=== PATIENT | female | born 1945 | race Caucasian/White ===

== ENCOUNTER 2017-08-18 09:32 | Inpatient (IN) | payer OTHER ==
[~2017-08-18] VITALS: Ht 157.5 cm; Wt 75.4 kg
--- NOTE | 2017-08-18 10:04 | ED AMS/SEIZURE/WEAK/DIZZY ---
History of Present Illness General Chief Complaint: Dizziness Stated Complaint: DIZZINESS Source: patient, family Exam Limitations: no limitations Vital Signs & Intake/Output Vital Signs & Intake/Output Vital Signs Date Time Temp Pulse Resp B/P B/P Pulse O2 O2 Flow FiO2 Mean Ox Delivery Rate 08/18 2129 60 116/50 08/18 1929 98.9 89 18 130/62 95 Room Air 08/18 1733 98.6 68 18 134/64 98 Room Air Room Air 08/18 1619 98.4 67 18 129/62 97 Room Air 08/18 1254 97.9 66 16 135/62 99 Room Air 08/18 1026 69 16 157/68 99 Room Air 08/18 0938 97.8 72 18 147/67 99 Room Air ED Intake and Output 08/19 0000 08/18 1200 Intake Total 150 0 Output Total Balance 150 0 Intake, Oral 150 0 Number 0 Bowel Movements Patient 168 lb 165 lb Weight Weight Reported by Patient Measurement Method Allergies Coded Allergies: Iodine and Iodide Containing Produc (Intermediate, RASH 08/18/17) Uncoded Allergies: NYSENTAL (Intermediate, RASH 08/18/17) INGREDIENT: NO KNOWN - NO KNOWN DRUG ALLERGY (02/28/09) Reconcile Medications Aspirin (Ecotrin*) 81 MG TABLET.DR 1 TAB PO DAILY HEART HEALTH (Reported) Cholecalciferol (Vitamin D3) (Vitamin D) 1,000 UNIT TABLET 1 TAB PO DAILY VITAMIN SUPPORT (Reported) Hydroxyurea 500 MG CAPSULE 2 CAP PO Q48 UNKNOWN (Reported) Hydroxyurea 500 MG CAPSULE 1 CAP PO Q48 UNKNOWN (Reported) Vitamin E 400 UNIT CAPSULE 1 CAP PO DAILY VITAMIN SUPPORT (Reported) Triage Note: BIBA FROM HOME WITH C/O SEVERE DIZZINESS SINCE LAST PM, UNABLE TO SIT UP OR MOVE. ALERT, DENIES PAIN OR SOB. ALSO C/O NAUSEA. REPORTS DIZZINESS STARTED DIRONG THE NIGHT AFTER GETTING UP TO GO TO THE BATHROOM, FELL AGAINST WALL. DENIES HITTING HEAD. PLACED ON PEDODONTIST. Triage Nurses Notes Reviewed? yes Onset: Abrupt Duration: hour(s): Timing: multiple episodes today Injury Environment: home Severity: moderate HPI: 71-year-old female BIBA to emergency department complaining of dizziness beginning in the middle of the night when she walked to the bathroom. Patient states dizziness is worse with positional changes including turning her head to both sides, sitting or standing. Patient states dizziness feels as though the room is spinning. She has never had similar symptoms in the past. Patient reports nausea associated with her dizziness. She denies fall or head trauma, visual changes, abdominal pain, chest pain, dyspnea, vomiting. (Marimar Morrell) Past History Travel History Traveled to [place] past 21 day No Medical History Any Pertinent Medical History? see below for history Neurological: NONE EENT: NONE Cardiovascular: HEART MURMER Respiratory: NONE Gastrointestinal: NONE Hepatic: NONE Renal: NONE Musculoskeletal: ARTHRITIS Psychiatric: NONE Endocrine: GOITER Surgical History Surgical History: non-contributory Psychosocial History What is your primary language Syrian Tobacco Use: Never used ETOH Use: denies use Family History Hx Contributory? No (Marimar Morrell) Review of Systems Review of Systems Constitutional: Reports: no symptoms. EENTM: Reports: no symptoms. Respiratory: Reports: no symptoms. Cardiovascular: Reports: no symptoms. GI: Reports: see HPI. Genitourinary: Reports: no symptoms. Musculoskeletal: Reports: no symptoms. Skin: Reports: no symptoms. Neurological/Psychological: Reports: see HPI. Hematologic/Endocrine: Reports: no symptoms. Immunologic/Allergic: Reports: no symptoms. All Other Systems: Reviewed and Negative (Marimar Morrell) Physical Exam Physical Exam General Appearance: well developed/nourished, no apparent distress, alert, awake Head: atraumatic, normal appearance Eyes: Bilateral: normal appearance, PERRL, EOMI. Ears, Nose, Throat: normal pharynx, normal ENT inspection, hearing grossly normal Neck: normal inspection, supple, full range of motion Respiratory: normal breath sounds, no respiratory distress, lungs clear Cardiovascular: regular rate/rhythm Gastrointestinal: normal bowel sounds, soft, non-tender, no organomegaly Back: normal inspection, normal range of motion Extremities: normal range of motion Neurologic/Psych: no motor/sensory deficits, awake, alert, oriented x 3, stave block roller II- XII nml as tested Skin: intact, normal color, warm/dry Core Measures ACS in differential dx? Yes CVA/TIA Diagnosis No Sepsis Present: No Sepsis Focused Exam Completed? No (Marimar Morrell) Progress Differential Diagnosis: arrythmia, alcohol intoxication, anemia, benign positional vertigo, CVA/stroke, dehydration, encephalitis, hypoglycemia, intracranial Hem., intracranial mass/tumor, labrynthitis, postural hypotension, post-traumatic vertigo, vertebrobasilar insuff Plan of Care: Orders Procedure Date/time Status Heart Healthy Diet 08/19 B Active TROPONIN LEVEL 08/19 0600 Active CBC WITHOUT DIFFERENTIAL 08/19 0600 Active BASIC ELECTROLYTES PLUS BUN&CR 08/19 0600 Active EKG 08/19 0600 Active TROPONIN LEVEL 08/19 0000 Complete EKG 08/19 0000 Active Regular Diet 08/18 D Complete TROPONIN LEVEL 08/18 1834 Complete EKG 08/18 1834 Active Patient Data 08/18 1827 Active PT Evaluate & Treat 08/18 1744 Active Pathway - chart 08/18 1744 Active House Staff 08/18 1744 Active Patient Data 08/18 1744 Active Vital Signs 08/18 1729 Active Teach/Educate 08/18 1729 Active Pain Treatment and Response 08/18 1729 Active Nutritional Intake, Monitor 08/18 1729 Active Isolation 08/18 1729 Active Intake & Output 08/18 1729 Active Patient Care Conference 08/18 1729 Active Activity/Ambulation 08/18 1729 Active Patient Data 08/18 1549 Active OXYGEN SETUP (GEN) 08/18 1542 Active Saline Lock 08/[address] in observation 08/18 1542 Active Vital Signs 08/18 1542 Complete Activity/Ambulation 08/18 1542 Complete Code Status 08/18 1542 Active PT Evaluate & Treat 08/18 1242 Active THYROID STIMULATING HORMONE 08/18 1035 Complete MAGNESIUM 08/18 1035 Complete FOLIC ACID 08/18 1035 Complete VITAMIN B12 08/18 1035 Complete TROPONIN LEVEL 08/18 1003 Complete COMPREHENSIVE METABOLIC PANEL 08/18 1003 Complete CBC WITHOUT DIFFERENTIAL 08/18 1003 Complete Intake & Output 08/18 0947 Complete EKG 08/18 0935 Active Neuromuscular Re-Ed 15Min Ea 08/18 UNK Complete PT EVAL MOD COMPLEX 30 MIN 08/18 UNK Complete BODY POSITION GOAL STATUS 08/18 UNK Complete BODY POSITION CURRENT STATUS 08/18 UNK Complete Lab Add-on Test 08/18 UNK Active VTE Mechanical Prophylaxis 08/18 UNK Active Vital Signs 08/18 UNK Active MISTAKE 08/18 UNK Active Telemetry/Lineman 08/18 UNK Active Intake & Output 08/18 UNK Active CMS- Neurovascular Checks 08/18 UNK Active MRI-HEAD W/O PAUL 08/18 UNK Active Current Medications Sig/Ragini Start time Last Medication Dose Stop Time Status Admin Hydroxyurea 1,000 MG Q48 08/20 0900 AC (Hydrea) Hydroxyurea 500 MG Q48 08/19 1330 AC (Hydrea) Meclizine HCl 12.5 MG TID 08/19 0900 AC (Antivert) Acetaminophen 650 MG Q6P PRN 08/18 1745 AC (Tylenol) Morphine Sulfate 4 MG Q4P PRN 08/18 1745 AC (MORPHINE SULFATE) Oxycodone/ 1 TAB Q6P PRN 08/18 1745 AC Acetaminophen (Percocet) Laboratory Tests 08/19/17 0630: Sodium Pending, Potassium Pending, Chloride Pending, Carbon Dioxide Pending, Anion Gap Pending, BUN Pending, Creatinine Pending, BUN/Creatinine Ratio Pending , Troponin I Pending, CBC w Diff Pending, WBC Pending, RBC Pending, Hgb Pending, Hct Pending, MCV Pending, MCH Pending, MCHC Pending, RDW Pending, Plt Count Pending, MPV Pending 08/19/17 0020: Troponin I < 0.01 08/18/17 1856: Troponin I < 0.01 08/18/17 1035: Anion Gap 10, Estimated GFR > 60, BUN/Creatinine Ratio 18.6, Glucose 108 H, Calcium 9.6, Magnesium 1.9, Total Bilirubin 0.3, AST 17, ALT 25, Alkaline Phosphatase 65, Troponin I < 0.01, Total Protein 7.1, Albumin 3.8, Globulin 3.3, Albumin/Globulin Ratio 1.2, Vitamin B12 571, Folate > 20.0 H, TSH 1.100, CBC w Diff NO MAN DIFF REQ, RBC 3.75 L, MCV 101.6 H, MCH 34.6 H, MCHC 34.1, RDW 13.2, MPV 7.3 L, Gran % 69.0, Lymphocytes % 21.7, Monocytes % 6.5, Eosinophils % 2.3, Basophils % 0.5, Absolute Granulocytes 3.9, Absolute Lymphocytes 1.2, Absolute Monocytes 0.4, Absolute Eosinophils 0.1, Absolute Basophils 0 Patient medicated with meclizine. Given no history of vertigo or dizziness CT imaging of the head was obtained to rule out mass, ICH. Head CT scan is within normal limits, no acute findings. Patient's labs are stable. Patient reports persistent dizziness following meclizine. She was medicated with scopolamine patch. Following scopolamine patch attempted having patient. However she could not tolerate sitting in stretcher due to her dizziness, she had to lay flat again. Patient medicated with IV ativan. PT consult ordered for geovanna hallpike maneuver. Following PT evaluation attempts made to ambulate the patient however upon standing she doesn't dizziness, she could not walk. Given persistent vertigo symptoms following several medications is unsafe to discharge this patient at this time. Case management recommend observation. Patient requires further antiemetics, medications for her dizziness, possible neurology consult, had MRI. Spoke with Dr. White regarding general medicine obervation. Dr. Cotton agrees with this plan. Diagnostic Imaging: Viewed by Me: CT Scan. Discussed w/RAD: CT Scan. Radiology Impression: PATIENT: LUZ ELENA MCCRARY PRESENT AGE: 71 PATIENT ACCOUNT NO: [id number] : 45 LOCATION: [facility] ORDERING PHYSICIAN: Marimar CHOWDHURY SERVICE DATE: 08/18/17 EXAM TYPE: CAT - CT HEAD WO IV CONTRAST EXAMINATION: CT HEAD WITHOUT CONTRAST CLINICAL INFORMATION: Evaluate for intracranial hemorrhage. COMPARISON: None TECHNIQUE: Contiguous axial imaging was performed from the skull base to vertex without intravenous administration of contrast. DLP: 620.92 mGy-cm FINDINGS: There is no evidence of acute intracranial hemorrhage or territorial infarction. No abnormal mass effect or midline shift is seen. Newman to white matter differentiation is well preserved. No extra-axial fluid collections are identified. The ventricles are normal in size. There is no abnormal attenuation within the brain parenchyma. The osseous structures and soft tissues are normal. The mastoid air cells and visualized portions of the paranasal sinuses are well aerated. IMPRESSION: No acute intracranial pathology. DICTATED BY: Zee Adams MD DATE/TIME DICTATED:08/18/171126 PRODUCTION FOREMAN:CLIFF DATE/TIME TRANSCRIBED:08/18/171126 CONFIDENTIAL, DO NOT COPY WITHOUT APPROPRIATE AUTHORIZATION. <Electronically signed in Other Vendor System> SIGNED BY: Zee Adams MD 08/18/17 1132 Initial ED EKG: sinus rhythm @71bpm, PAC, nonspecific ST changes (Ilana CHOWDHURY,Marimar Noguera) Departure Departure Disposition: STILL A PATIENT Condition: Stable Clinical Impression Primary Impression: Vertigo, constant Secondary Impressions: Gait instability Referrals: William RICHTER,Racheal Goodman (PCP/Family) Departure Forms: Customer Survey General Discharge Information Observation Note Spoke With: Junior White MD Physician Advisor Notified: SANDEEP YANES DO Place Patient In: Non-ED OBS Care Area Rationale for Observation: My rational for observation is as follows [intractable vertigo despite multiple medications and PT consults, patient is unable to ambulate here in the emergency department due to her vertigo, she requires further antiemetics, case management and PT consult, premature discharge is medically unsafe]. (Ilana CHOWDHURY,Marimar Noguera) PA/SHEET METAL ROOFER Co-Sign Statement Statement: ED Attending supervision documentation- X I saw and evaluated the patient. I have also reviewed all the pertinent lab results and diagnostic results. I agree with the findings and the plan of care as documented in the PA's/SHEET METAL ROOFER's documentation. Initractable dizziness/vertigo unable to sit up or ambulate despite multiple interventions. No improvement with Alex. [] I have reviewed the ED Record and agree with the PA's/SHEET METAL ROOFER's documentation. [] Additions or exceptions (if any) to the PAs/SHEET METAL ROOFER's note and plan are summarized below: [] (Yury RICHTER,Serjio)
[2017-08-18 10:47] LABS: ABSOLUTE BASOPHIL COUNT 0 /CUMM (0.0-0.2); ABSOLUTE EOSINOPHIL COUNT 0.1 /CUMM (0.0-0.7); ABSOLUTE GRANULOCYTE CT 3.9 /CUMM (1.4-6.5); ABSOLUTE LYMPH COUNT 1.2 /CUMM (1.2-3.4); ABSOLUTE MONOCYTE COUNT 0.4 /CUMM (0.10-0.60); BASOPHIL % 0.5 % (0.0-2.0); EOSINOPHIL % 2.3 % (0-5); HEMATOCRIT 38.1 % (37-47); MEAN CORPUSCULAR HGB 34.6 PG (27.0-31.0); MEAN CORPUSCULAR HGB CONC 34.1 G/DL (33.0-37.0); MEAN CORPUSCULAR VOLUME 101.6 FL (81.0-99.0); MEAN PLATELET VOLUME 7.3 FL (7.4-10.4); PLATELET COUNT 371 /CUMM (130-400); RBC DISTRIBUTION WIDTH 13.2 % (11.5-14.5); RED BLOOD CELL CT 3.75 /CUMM (4.20-5.40); WHITE BLOOD CELL COUNT 5.6 /CUMM (4.8-10.8)
--- NOTE | 2017-08-18 11:32 | CT SCAN REPORT ---
EXAMINATION: CT HEAD WITHOUT CONTRAST CLINICAL INFORMATION: Evaluate for intracranial hemorrhage. COMPARISON: None TECHNIQUE: Contiguous axial imaging was performed from the skull base to vertex without intravenous administration of contrast. DLP: 620.92 mGy-cm FINDINGS: There is no evidence of acute intracranial hemorrhage or territorial infarction. No abnormal mass effect or midline shift is seen. Newman to white matter differentiation is well preserved. No extra-axial fluid collections are identified. The ventricles are normal in size. There is no abnormal attenuation within the brain parenchyma. The osseous structures and soft tissues are normal. The mastoid air cells and visualized portions of the paranasal sinuses are well aerated. IMPRESSION: No acute intracranial pathology.
[2017-08-18] MEDS ORDERED: HYDROXYUREA500 M1 PO (12:42)
[2017-08-18] MEDS ORDERED: VITAMIN D1000 UNIT PO (12:43)
[2017-08-18] MEDS ORDERED: VITAMIN E400 UNI5 PO (12:44)
[2017-08-18] MEDS ORDERED: ASPIRIN EC81 M1 PO (12:44)
--- NOTE | 2017-08-18 17:39 | History & Physical ---
Eva Doshi 08/18/17 2437: General Information and HPI History of Present Illness: Ms. Hopkins is a 71 yo F with a PMH of multinodular goiter, OA, thrombocytosis on Hydroxyurea who presents to the ED with dizziness for 2 days. Patient reports last night while getting up from bed to use the bathroom she felt lightheaded and fell backwards onto the bed. She then got up and went to the bathroom to urinate. She made her way back to bed and her dizziness resolved upon lying down in bed. Eventually she had to use the bathroom again and needed assistance from her to ambulate. She reports previous episode of dizziness but not this severe. She has intermittent palpitations that resolved when laying in bed or coughing. She does a lot of yard work and recalls multiple tick removals from her body but never sought medical attention. She notices that her hands contracts spontaneously and requires her to straigthen her fingers with her other hand. She has chronic neck numbness and RLE weakness for the past few weeks. She reports a normal appetite. She performs her own ADLs. She denies CAMPBELL, blurry vision, tinnitus, fever, chills, urinary or bowel symptoms. In the ED she was given meclizine 1 dose, lorazepam 1 dose, scopolamine patch but she still reports dizziness upon sitting up Allergies/Medications Allergies: Coded Allergies: Iodine and Iodide Containing Produc (Intermediate, RASH 08/18/17) Uncoded Allergies: NYSENTAL (Intermediate, RASH 08/18/17) INGREDIENT: NO KNOWN - NO KNOWN DRUG ALLERGY (02/28/09) Past History Travel History Traveled to [place] past 21 day No Medical History Neurological: NONE EENT: NONE Cardiovascular: HEART MURMER Respiratory: NONE Gastrointestinal: NONE Hepatic: NONE Renal: NONE Musculoskeletal: ARTHRITIS Psychiatric: NONE Endocrine: GOITER Isolation History: Standard Surgical History Surgical History: non-contributory Past Family/Social History Psychosocial History ETOH Use: denies use Review of Systems Review of Systems Constitutional: Reports: see HPI. Exam & Diagnostic Data Last 24 Hrs of Vital Signs/I&O Vital Signs Date Time Temp Pulse Resp B/P B/P Pulse O2 O2 Flow FiO2 Mean Ox Delivery Rate 08/18 1733 98.6 68 18 134/64 98 Room Air Room Air 08/18 1619 98.4 67 18 129/62 97 Room Air 08/18 1254 97.9 66 16 135/62 99 Room Air 08/18 1026 69 16 157/68 99 Room Air 08/18 0938 97.8 72 18 147/67 99 Room Air Intake & Output 08/18 1600 08/18 0800 06 0000 Intake Total 0 Output Total Balance 0 Intake, Oral 0 Patient 165 lb Weight Weight Reported by Patient Measurement Method Physical Exam General Appearance Alert, Oriented X3, Cooperative, No Acute Distress Skin BL upper extremity rash HEENT Atraumatic, PERRLA, EOMI, Nystagmus Neck Supple, No JVD, No thryomegaly Cardiovascular Regular Rate, Normal S1, Normal S2 Lungs Clear to Auscultation, Normal Air Movement Abdomen Normal Bowel Sounds, Soft, No Tenderness Neurological Normal Speech, Strength at 5/5 X4 Ext, Normal Tone, Sensation Intact, Cranial Nerves 3-12 NL Extremities No Edema Last 24 Hrs of Labs/Kyaw: Laboratory Tests 08/18/17 1035: Anion Gap 10, Estimated GFR > 60, BUN/Creatinine Ratio 18.6, Glucose 108 H, Calcium 9.6, Total Bilirubin 0.3, AST 17, ALT 25, Alkaline Phosphatase 65, Troponin I < 0.01, Total Protein 7.1, Albumin 3.8, Globulin 3.3, Albumin/ Globulin Ratio 1.2, CBC w Diff NO MAN DIFF REQ, RBC 3.75 L, MCV 101.6 H, MCH 34.6 H, MCHC 34.1, RDW 13.2, MPV 7.3 L, Gran % 69.0, Lymphocytes % 21.7, Monocytes % 6.5, Eosinophils % 2.3, Basophils % 0.5, Absolute Granulocytes 3.9, Absolute Lymphocytes 1.2, Absolute Monocytes 0.4, Absolute Eosinophils 0.1, Absolute Basophils 0 Diagnostic Data EKG Results irregular rate, HR 71, SR, QTc [address] HEAD WITHOUT CONTRAST IMPRESSION: No acute intracranial pathology. Assessment/Plan Assessment: Ms. Hopkins is a 71 yo F with a PMH of multinodular goiter, OA, thrombocytosis presents to the ED with dizziness for 2 days. #Vertigo #Abnormal ECG #Macrocytosis Plan: Place on 23h OBS on telemetry for close monitiring TROP/ECG q6h x 3 PT evaluation MRI brain to r/o posterior vertebrobasilar insufficiency Tick panel (Lyme, Ehrlicia, Babesios) Obtain Mag, TSH, B12, folate We will resume her home meds: Hydroxyurea We will hold ASA Meclizine for dizziness Diet: Regular DVT ppx: ALPS Code: Full As Ranked By This Provider Problem List: 1. Vertigo Core Measures/Misc (11/24) Acute Coronary Syndrome ACS Diagnosis: No Congestive Heart Failure Congestive Heart Failure Diagnosis No Cerebrovascular Accident CVA/TIA Diagnosis: No VTE (View Protocol) VTE Risk Factors Age>40 No Mechanical VTE Prophylaxis d/t N/A MechProphylax Ordered No VTE Pharm Prophylaxis d/t Medical Contraindication (CVA needs to be ruled out ) Sepsis (View protocol) Sepsis Present: No If YES complete Sepsis Event Note If YES complete Sepsis Event Note Junior White 08/18/171952: General Information and HPI Allergies/Medications Home Med list Aspirin (Ecotrin*) 81 MG TABLET.DR 1 TAB PO DAILY HEART HEALTH (Reported) Cholecalciferol (Vitamin D3) (Vitamin D) 1,000 UNIT TABLET 1 TAB PO DAILY VITAMIN SUPPORT (Reported) Hydroxyurea 500 MG CAPSULE 2 CAP PO Q48 UNKNOWN (Reported) Hydroxyurea 500 MG CAPSULE 1 CAP PO Q48 UNKNOWN (Reported) Meclizine HCl 25 MG TABLET 1 TAB PO TIDPRN Vertigo Vitamin E 400 UNIT CAPSULE 1 CAP PO DAILY VITAMIN SUPPORT (Reported) Core Measures/Misc (11/24) Sepsis (View protocol) If YES complete Sepsis Event Note If YES complete Sepsis Event Note Attending MD Review Statement Attending Statement Attending MD Statement: examined this patient, discuss w/resident/PA/PHILOSOPHY SPECIALIST, agreed w/resident/PA/PHILOSOPHY SPECIALIST, reviewed EMR data (avail) Attending Assessment/Plan: 71 yr female with essential thrombocytosis on hydroxyurea, multinodular goiter presented with c/c of dizziness which started last night . Pt woke to go the bathroom and started feeling wobbly and had this feeling of room spinning around and was assoicated with nausea. No vomiting , no fever or chills. Pt does give h /o previously feeling dizzy on getting up suddenly but denies any vertigo. Denies any sick contacts. Pt gives h/o working in the backyard and seeing ticks on her body. Pt was given meclizine, scopolamine and ativan in the ER but cont to feel dizzy and with inability to walk . On exam has mild nystagmus. Will observe on telemetry. EKG showed some sinus arrhythmia. Will get Trop and repeat EKG. Will get MRI of brain. Will order tick panel and will get PT consult. will start her on meclizine and will give valium if not getting better with meclizine. d/w pt the care Queta Ruiz MD 08/18/172021: Core Measures/Misc (11/24) Sepsis (View protocol) If YES complete Sepsis Event Note If YES complete Sepsis Event Note Resident Review Statement Resident Statement: examined this patient, discussed with analysis intern, agreed with analysis intern Other Findings: This is a 71-year-old female with past medical history significant for essential thrombocytosis on hydroxyurea, arthritis, multinodular goiter, some kind of breast nodule, murmur, who comes in for chief complaint of dizziness. Yesterday she went to sleep at night and noted no abnormalities. However, when she woke up to use the restroom around 11:30 PM she noted severe dizziness and felt unsteady on her feet when walking to the bathroom. She fell against a wall, denies any loss of consciousness, syncope, or head strike. Pt endorses nausea but no vomiting, only thing that improved her symptoms was laying in bed and looking straight. She does have some intermittent l. sided neck numbness and r. leg weakness earlier in the week. She does have palpitations for several months when getting into bed but it gets better with moves such as coughing. She endorse hx of multiple tick bites. Vitals: 97.8, 66-72, 16-18, blood pressure 129/62-157/68, 97-99% LABS: WBC 5.6, MCV 101.6 Assessment: This is a 71-year-old female with past medical history significant for thrombocytosis, multinodular goiter, arthritis,who comes in for CC of sudden onset dizziness. On physical exam she was found to have 5 beat nystagmus with no other obvious neurologic deficit but with some postural instability. Differential diagnosis for vertigo in this patient, given sudden onset, includes BPPV, vestibular neuritis, and vertebrobasilar TIA. Problem List: 1. Vertigo 2. Palpitations 3. EKG with PAC and conduction alejandra PLAN: 1. Vertigo: It is difficult to differentiate peripheral versus central vertigo given that she has unidirectional 5 beat nystagmus without any other obvious neurologic deficit other than subjective reporting of intermittent right leg weakness and left-sided neck numbness but she does have postural instability w/o deafness. CT head negative for intracranial pathology. * MRI of head * Physical therapy * Continue meclizine * Note holding ASA at this time. 2. Palpitations: EKG shows sinus arrhythmia and multiple PACs. She does seem to have evidence of possible block. * Troponin EKG * Check magnesium * Tick panel * TSH 3. MCV 101.6. Secondary to hydroxyurea. However will rule out other causes * Check B12 * Check folate 4. Hx of Thrombocytosis: * Con't hydroxyurea FC Mech ppx REG DIET
[2017-08-18 21:29] VITALS: BP 116/50
[2017-08-19 07:14] VITALS: BP 120/62
--- NOTE | 2017-08-19 07:25 | PN- Housestaff ---
See Addendum Subjective Follow-up For: Vertigo Tele-Events Since Last Visit: Normal sinus rhythm with sinus bradycardia in the 50s Subjective: Seen and examined. Currently resting in the bed. Work with PT earlier was unable to work with them because of dizziness. Believes that with the slightest movement she starts experiencing dizziness sensation of room spinning. Complaining of left neck numbness pins and needle sensation however not present at the moment Review of Systems Constitutional: Reports: see HPI. Objective Last 24 Hrs of Vital Signs/I&O Vital Signs Date Time Temp Pulse Resp B/P B/P Pulse O2 O2 Flow FiO2 Mean Ox Delivery Rate 08/19 0714 98.2 59 20 120/62 95 Room Air 08/18 2129 60 116/50 08/18 1929 98.9 89 18 130/62 95 Room Air 08/18 1733 98.6 68 18 134/64 98 Room Air Room Air 08/18 1619 98.4 67 18 129/62 97 Room Air 08/18 1254 97.9 66 16 135/62 99 Room Air Intake & Output 08/19 1600 08/19 0800 08/19 0000 Intake Total 100 150 Output Total Balance 100 150 Intake, Oral 100 150 Number 0 Bowel Movements Patient 168 lb Weight Physical Exam General Appearance: Alert, Oriented X3 Cardiovascular: Normal S1, Normal S2 Lungs: Clear to Auscultation Abdomen: Normal Bowel Sounds, Soft Neurological: Normal Speech, Strength at 5/5 X4 Ext, Normal Tone, Sensation Intact, Cranial Nerves 3-12 NL Extremities: No Edema Current Medications: Current Medications Sig/Ragini Start time Last Medication Dose Route Stop Time Status Admin Acetaminophen 650 MG Q6P PRN 08/18 1745 AC PO Hydroxyurea 500 MG Q48 08/20 0900 DC PO Hydroxyurea 1,000 MG Q48 08/20 0900 AC PO Hydroxyurea 500 MG Q48 08/19 1330 AC PO Hydroxyurea 1,000 MG Q48 08/19 0900 DC PO Hydroxyurea 1,000 MG Q48 08/19 0000 DC 08/19 PO 08/19 0001 0034 Lorazepam 0 .STK-MED ONE 08/18 1251 DC .ROUTE Lorazepam 1 MG ONCE ONE 08/18 1245 DC 08/18 IV 08/18 1246 1252 Meclizine HCl 12.5 MG TID 08/19 09 AC 06/12 PO 0853 Morphine Sulfate 4 MG Q4P PRN 08/18 1745 AC IV Oxycodone/ 1 TAB Q6P PRN 08/18 1745 AC Acetaminophen PO Scopolamine HBr 0 .STK-MED ONE 08/18 1211 DC TOP Scopolamine HBr 1 PAT ONE ONE 08/18 1200 DC 08/18 TOP 08/18 1201 1206 Last 24 Hrs of Lab/Kyaw Results Last 24 Hrs of Labs/Mics: Laboratory Tests 08/19/17 0630: Anion Gap 8, Estimated GFR > 60, BUN/Creatinine Ratio 24.3, Troponin I < 0.01, CBC w Diff NO MAN DIFF REQ, RBC 3.55 L, MCV 101.6 H, MCH 34.3 H, MCHC 33.8, RDW 13.9, MPV 7.8, Gran % 52.1, Lymphocytes % 34.3, Monocytes % 7.9, Eosinophils % 5.0, Basophils % 0.7, Absolute Granulocytes 3.2, Absolute Lymphocytes 2.1, Absolute Monocytes 0.5, Absolute Eosinophils 0.3, Absolute Basophils 0 08/19/17 0600: Lyme Disease Antibody Pending 08/19/17 0020: Troponin I < 0.01 08/18/17 1856: Troponin I < 0.01 Assessment/Plan Assessment: This is a 71-year-old female with past medical history significant for thrombocytosis, multinodular goiter, arthritis,who comes in for CC of sudden onset dizziness. On physical exam she was found to have 5 beat nystagmus with no other obvious neurologic deficit but with some postural instability. Differential diagnosis for vertigo in this patient, given sudden onset, includes BPPV, vestibular neuritis, and vertebrobasilar TIA. She is currently being monitored on telemetry floor for treatment and evaluation of following conditions #Vertigo It is difficult to differentiate peripheral versus central vertigo given that she has unidirectional 5 beat nystagmus without any other obvious neurologic deficit other than subjective reporting of intermittent right leg weakness and left-sided neck numbness but she does have postural instability w/o deafness. CT head negative for intracranial pathology. -MRI head -Neuro consult placed -We are going to discontinue meclizine at this point because it is not helping the patient. -We will consider addition of Valium after neurology consult -PT work with the patient and Jennifer-Hallpike maneuver was positive for reproduction of the symptoms. However patient reported left-sided posterior cervical numbness without any visual changes. She reported dizziness and disorientation along with ataxia as per PT notes # Palpitations EKG shows sinus arrhythmia and multiple PACs. She seem to have evidence of possible block on admission. 3 sets of troponin negative, magnesium and TSH within normal limits. Overnight telemetry monitoring revealed normal sinus rhythm with sinus bradycardia -Thick panel pending #History of thrombocytosis Continue hydroxyurea #MCV 101.6. Secondary to hydroxyurea. B12 and folate within normal limits #/[facility] ppx/REG DIET Problem List: 1. Vertigo 2. Gait instability Pain Ratin Pain Location: na Pain Goal: Pain 4 or less Pain Plan: prn Tomorrow's Labs & Rationales: none
[2017-08-19 07:43] LABS: ABSOLUTE BASOPHIL COUNT 0 /CUMM (0.0-0.2); ABSOLUTE EOSINOPHIL COUNT 0.3 /CUMM (0.0-0.7); ABSOLUTE GRANULOCYTE CT 3.2 /CUMM (1.4-6.5); ABSOLUTE LYMPH COUNT 2.1 /CUMM (1.2-3.4); ABSOLUTE MONOCYTE COUNT 0.5 /CUMM (0.10-0.60); BASOPHIL % 0.7 % (0.0-2.0); GRANULOCYTE % 52.1 % (42.2-75.2); MEAN CORPUSCULAR HGB 34.3 PG (27.0-31.0); MEAN CORPUSCULAR HGB CONC 33.8 G/DL (33.0-37.0); MEAN CORPUSCULAR VOLUME 101.6 FL (81.0-99.0); MEAN PLATELET VOLUME 7.8 FL (7.4-10.4); PLATELET COUNT 323 /CUMM (130-400); RBC DISTRIBUTION WIDTH 13.9 % (11.5-14.5); RED BLOOD CELL CT 3.55 /CUMM (4.20-5.40); WHITE BLOOD CELL COUNT 6.2 /CUMM (4.8-10.8)
--- NOTE | 2017-08-19 14:52 | Cons- Neurology ---
General Information and HPI Consulting Request Date of Consult: 08/19/17 Requested By: Jesus Castrejon MD History of Present Illness: 71 y.o. female,yesterday noted severe vertigo when getting out of bed She recalls that she went to sleep at approximately 10 PM She awakened about 2 hours later to go to the bathroom As she got out of bed she noted that she became vertiginous and required help to walk She noted nausea but no vomiting Without her holding her she stated that she would have fallen She required help on the way back to bed from the bathroom but when she was in bed and would stay still noted that the vertigo resolved A few hours later she again tried to get out of bed and again noted recurrent vertigo This again lasted for a relatively brief period of time perhaps a few minutes and then again resolved when she got back to bed Subsequently she has been unable to get out of bed due to recurrent vertigo associated with nausea There's been no instance of head trauma There's been no headache or tinnitus or hearing change Patient does not recall experiencing similar problems previously She had recently been doing a lot of yard work In the ED she was given meclizine and lorazepam and scopolamine without significant effect Allergies/Medications Allergies: Coded Allergies: Iodine and Iodide Containing Produc (Intermediate, RASH 08/18/17) Uncoded Allergies: NYSENTAL (Intermediate, RASH 08/18/17) INGREDIENT: NO KNOWN - NO KNOWN DRUG ALLERGY (02/28/09) Home Med List: Aspirin (Ecotrin*) 81 MG TABLET.DR 1 TAB PO DAILY HEART HEALTH (Reported) Cholecalciferol (Vitamin D3) (Vitamin D) 1,000 UNIT TABLET 1 TAB PO DAILY VITAMIN SUPPORT (Reported) Hydroxyurea 500 MG CAPSULE 2 CAP PO Q48 UNKNOWN (Reported) Hydroxyurea 500 MG CAPSULE 1 CAP PO Q48 UNKNOWN (Reported) Vitamin E 400 UNIT CAPSULE 1 CAP PO DAILY VITAMIN SUPPORT (Reported) Current Medications: Current Medications Sig/Ragini Start time Last Medication Dose Route Stop Time Status Admin Acetaminophen 650 MG Q6P PRN 08/18 1745 AC PO Aspirin Buffered 81 MG DAILY 08/19 1306 AC 08/19 PO 1332 Atorvastatin Calcium 40 MG 1700 / 1700 AC PO Hydroxyurea 500 MG Q48 08/20 0900 DC PO Hydroxyurea 1,000 MG Q48 08/20 0900 AC PO Hydroxyurea 500 MG Q48 08/19 1330 AC 08/19 PO 1332 Hydroxyurea 1,000 MG Q48 08/19 0900 DC PO Hydroxyurea 1,000 MG Q48 08/19 0000 DC 08/19 PO 08/19 0001 0034 Meclizine HCl 12.5 MG TID 08/19 0900 DC 08/19 PO 0853 Morphine Sulfate 4 MG Q4P PRN 08/18 1745 AC IV Oxycodone/ 1 TAB Q6P PRN 08/18 1745 AC Acetaminophen PO Review of Systems Review of Systems: No headache No diplopia No hearing loss No tinnitus No speech difficulty No swallowing difficulty No chest pains No shortness of breath No abdominal pain No incontinence Patient has nocturia No significant swelling lower extremities No fevers No rashes Past History Travel History Traveled to [place] past 21 day No Medical History Blood Transfusion Hx: No Neurological: NONE EENT: NONE Cardiovascular: HEART MURMER Respiratory: NONE Gastrointestinal: NONE Hepatic: NONE Renal: NONE Musculoskeletal: ARTHRITIS Psychiatric: NONE Endocrine: GOITER Cancer(s): NONE PROGRAM MEDICAL DIRECTOR/Reproductive: NONE Surgical History Surgical History: non-contributory Psychosocial History Smoking Status: Never Smoked ETOH Use: denies use Exam & Diagnostic Data Vital Signs and I&O Vital Signs Date Time Temp Pulse Resp B/P B/P Pulse O2 O2 Flow FiO2 Mean Ox Delivery Rate 08/19 0714 98.2 59 20 120/62 95 Room Air 08/18 2129 60 116/50 08/18 1929 98.9 89 18 130/62 95 Room Air 08/18 1733 98.6 68 18 134/64 98 Room Air Room Air 08/18 1619 98.4 67 18 129/62 97 Room Air Intake & Output 08/19 1600 08/19 0800 08/19 0000 Intake Total 510 100 150 Output Total 850 Balance -340 100 150 Intake, IV 30 Intake, Oral 480 100 150 Number 0 Bowel Movements Output, Urine 850 Patient 168 lb Weight Alert and oriented Language functions fund of knowledge attention span concentration recall intact Heart sounds normal no carotid bruits distal pulses intact Extraocular movements full, pupils equal reactive, fundi benign, visual rojas intact, no facial weakness or facial sensory loss, palate tongue and shoulders intact, hearing grossly intact Normal tone and strength all 4 extremities No sensory loss to light touch and position bilaterally Deep tendon reflexes hypoactive throughout Coordinative functions upper extremities intact Patient became vertiginous on sitting up and therefore attempted gait was not made Hallpike Jennifer maneuver was performed in which patient had a sense of vertigo with the head down to the left and to the right; patient did not exhibit nystagmus Last 48 Hours of Lab Results: Laboratory Tests 08/19 08/19 08/19 0630 0600 0020 Chemistry Sodium (137 - 145 mmol/L) 140 Potassium (3.5 - 5.1 mmol/L) 4.4 Chloride (98 - 107 mmol/L) 105 Carbon Dioxide (22 - 30 mmol/L) 27 Anion Gap (5 - 16) 8 BUN (7 - 17 mg/dL) 17 Creatinine (0.5 - 1.0 mg/dL) 0.7 Estimated GFR (>60 ml/min) > 60 BUN/Creatinine Ratio (7 - 25 %) 24.3 Troponin I (< 0.11 ng/ml) < 0.01 < 0.01 Hematology CBC w Diff NO MAN DIFF REQ WBC (4.8 - 10.8 /CUMM) 6.2 RBC (4.20 - 5.40 /CUMM) 3.55 L Hgb (12.0 - 16.0 G/DL) 12.2 Hct (37 - 47 %) 36.0 L MCV (81.0 - 99.0 FL) 101.6 H MCH (27.0 - 31.0 PG) 34.3 H MCHC (33.0 - 37.0 G/DL) 33.8 RDW (11.5 - 14.5 %) 13.9 Plt Count (130 - 400 /CUMM) 323 MPV (7.4 - 10.4 FL) 7.8 Gran % (42.2 - 75.2 %) 52.1 Lymphocytes % (20.5 - 51.1 %) 34.3 Monocytes % (1.7 - 9.3 %) 7.9 Eosinophils % (0 - 5 %) 5.0 Basophils % (0.0 - 2.0 %) 0.7 Absolute Granulocytes (1.4 - 6.5 /CUMM) 3.2 Absolute Lymphocytes (1.2 - 3.4 /CUMM) 2.1 Absolute Monocytes (0.10 - 0.60 /CUMM) 0.5 Absolute Eosinophils (0.0 - 0.7 /CUMM) 0.3 Absolute Basophils (0.0 - 0.2 /CUMM) 0 Serology Lyme Disease Antibody Pending 08/18 08/18 1856 1035 Chemistry Sodium (137 - 145 mmol/L) 142 Potassium (3.5 - 5.1 mmol/L) 4.5 Chloride (98 - 107 mmol/L) 104 Carbon Dioxide (22 - 30 mmol/L) 28 Anion Gap (5 - 16) 10 BUN (7 - 17 mg/dL) 13 Creatinine (0.5 - 1.0 mg/dL) 0.7 Estimated GFR (>60 ml/min) > 60 BUN/Creatinine Ratio (7 - 25 %) 18.6 Glucose (65 - 99 mg/dL) 108 H Calcium (8.4 - 10.2 mg/dL) 9.6 Magnesium (1.6 - 2.3 mg/dL) 1.9 Total Bilirubin (0.2 - 1.3 mg/dL) 0.3 AST (14 - 36 U/L) 17 ALT (9 - 52 U/L) 25 Alkaline Phosphatase (<127 U/L) 65 Troponin I (< 0.11 ng/ml) < 0.01 < 0.01 Total Protein (6.3 - 8.2 g/dL) 7.1 Albumin (3.5 - 5.0 g/dL) 3.8 Globulin (1.9 - 4.2 gm/dL) 3.3 Albumin/Globulin Ratio (1.1 - 2.2 %) 1.2 Vitamin B12 (239 - 931 pg/mL) 571 Folate (2.76 - 20.0 ng/mL) > 20.0 H TSH (0.270 - 4.200 uIU/mL) 1.100 Hematology CBC w Diff NO MAN DIFF REQ WBC (4.8 - 10.8 /CUMM) 5.6 RBC (4.20 - 5.40 /CUMM) 3.75 L Hgb (12.0 - 16.0 G/DL) 13.0 Hct (37 - 47 %) 38.1 MCV (81.0 - 99.0 FL) 101.6 H MCH (27.0 - 31.0 PG) 34.6 H MCHC (33.0 - 37.0 G/DL) 34.1 RDW (11.5 - 14.5 %) 13.2 Plt Count (130 - 400 /CUMM) 371 MPV (7.4 - 10.4 FL) 7.3 L Gran % (42.2 - 75.2 %) 69.0 Lymphocytes % (20.5 - 51.1 %) 21.7 Monocytes % (1.7 - 9.3 %) 6.5 Eosinophils % (0 - 5 %) 2.3 Basophils % (0.0 - 2.0 %) 0.5 Absolute Granulocytes (1.4 - 6.5 /CUMM) 3.9 Absolute Lymphocytes (1.2 - 3.4 /CUMM) 1.2 Absolute Monocytes (0.10 - 0.60 /CUMM) 0.4 Absolute Eosinophils (0.0 - 0.7 /CUMM) 0.1 Absolute Basophils (0.0 - 0.2 /CUMM) 0 Imaging/Other Studies: CT FINDINGS: There is no evidence of acute intracranial hemorrhage or territorial infarction. No abnormal mass effect or midline shift is seen. Newman to white matter differentiation is well preserved. No extra-axial fluid collections are identified. The ventricles are normal in size. There is no abnormal attenuation within the brain parenchyma. The osseous structures and soft tissues are normal. The mastoid air cells and visualized portions of the paranasal sinuses are well aerated. IMPRESSION: No acute intracranial pathology. Assessment/Plan Assessment: Probable positional vertigo based on patient's history However on Hallpike Jennifer maneuver while patient noted vertiginous sense nystagmus was not noted Therefore positional vertigo could not be further defined as benign or not benign Recommendations: MRI scan brain Physical therapy for vestibular exercises Consult Acknowledgment - Thank you for your consult request.
[2017-08-19 14:53] VITALS: BP 130/80
[2017-08-19 20:57] VITALS: BP 134/68
[2017-08-20 06:47] VITALS: BP 150/68
--- NOTE | 2017-08-20 07:03 | PN- Housestaff ---
See Addendum Subjective Follow-up For: Vertigo Tele-Events Since Last Visit: Normal sinus rhythm with sinus bradycardia up to 40s AV block?? Subjective: Seen and examined. Resting comfortably. Reports improvement in symptoms overall. Patient states that moving sideways does not cause as much dizziness as before. Today she went forward she became dizzy but it was not as bad as before. Review of Systems Constitutional: Reports: see HPI. Objective Last 24 Hrs of Vital Signs/I&O Vital Signs Date Time Temp Pulse Resp B/P B/P Pulse O2 O2 Flow FiO2 Mean Ox Delivery Rate 08/20 0647 97.8 69 18 150/68 94 Room Air 08/19 2057 98.4 64 18 134/68 94 Room Air 08/19 1453 98.2 68 18 130/80 92 Room Air Intake & Output 08/20 0800 08/20 0000 08/19 1600 Intake Total 220 375 510 Output Total 300 350 850 Balance -80 25 -340 Intake, IV 30 Intake, Oral 220 375 480 Number 0 Bowel Movements Output, Urine 300 350 850 Physical Exam General Appearance: Alert, Oriented X3, Cooperative Cardiovascular: Normal S1, Normal S2 Lungs: Clear to Auscultation Abdomen: Normal Bowel Sounds, Soft, No Tenderness Neurological: Normal Speech, Strength at 5/5 X4 Ext, Normal Tone, Sensation Intact, Cranial Nerves 3-12 NL Current Medications: Current Medications Sig/Ragini Start time Last Medication Dose Route Stop Time Status Admin Acetaminophen 650 MG Q6P PRN 08/18 1745 AC PO Aspirin Buffered 81 MG DAILY 08/19 1306 AC 08/19 PO 1332 Atorvastatin Calcium 40 MG 1700 08/19 1700 AC 08/19 PO 1625 Diazepam 2 MG ONCE PRN 08/20 0715 AC PO 08/20 1400 Hydroxyurea 500 MG Q48 08/20 0900 DC PO Hydroxyurea 1,000 MG Q48 08/20 0900 AC PO Hydroxyurea 500 MG Q48 08/19 1330 AC 08/19 PO 1332 Hydroxyurea 1,000 MG Q48 08/19 0900 DC PO Meclizine HCl 12.5 MG TID 08/19 0900 DC 08/19 PO 0853 Morphine Sulfate 4 MG Q4P PRN 08/18 1745 AC IV Oxycodone/ 1 TAB Q6P PRN 08/18 1745 AC Acetaminophen PO Patient Medication 1 ED ONE ONE 08/19 1630 DC 08/20 [facility] ED 08/19 [id number] Assessment/Plan Assessment: This is a 71-year-old female with past medical history significant for thrombocytosis, multinodular goiter, arthritis,who comes in for CC of sudden onset dizziness. On physical exam she was found to have 5 beat nystagmus with no other obvious neurologic deficit but with some postural instability. Differential diagnosis for vertigo in this patient, given sudden onset, includes BPPV, vestibular neuritis, and vertebrobasilar TIA. She is currently being monitored on telemetry floor for treatment and evaluation of following conditions #Vertigo Appears to be positional vertigo. Patient has been evaluated by neurology benign versus non-benign.CT head negative for intracranial pathology. -Awaiting MRI of head -Meclizine has been discontinued because it was not improving patient's symptoms -Consider addition of Valium for symptomatic control -Continue working with PT # Palpitations EKG shows sinus arrhythmia and multiple PACs. She seem to have evidence of possible block on admission. 3 sets of troponin negative, magnesium and TSH within normal limits. Overnight telemetry monitoring revealed normal sinus rhythm with sinus bradycardia. AV block? -Thick panel pending #History of thrombocytosis Continue hydroxyurea #MCV 101.6. Secondary to hydroxyurea. B12 and folate within normal limits #/[facility] ppx/REG DIET Problem List: 1. Vertigo 2. Gait instability Pain Ratin Pain Location: na Pain Goal: Pain 4 or less Pain Plan: prn Tomorrow's Labs & Rationales: none
[2017-08-20] MEDS ORDERED: VALIUM2 M1 PO (08:04)
[2017-08-20 11:30] VITALS: BP 140/64
--- NOTE | 2017-08-20 12:06 | MRI REPORT ---
EXAMINATION: MR BRAIN WITHOUT AND WITH CONTRAST MRA HEAD WITHOUT CONTRAST MRA NECK WITHOUT AND WITH CONTRAST CLINICAL INFORMATION: Intractable vertigo. Rule out CVA particularly and posterior circulation. COMPARISON: Head CT August 18, 2017. TECHNIQUE: Multiplanar, multisequence MRI of the brain was obtained before and after the intravenous administration of 8 mL Gadavist. MRA of the neck was performed without and with contrast. MRA of head was performed without contrast utilizing [id number] technique. FINDINGS: BRAIN MRI: There is no acute infarct, hemorrhage, or parenchymal mass. There is a 2.8 x 1.6 meningioma along the left superior frontal convexity and an additional 1.7 x 0.7 cm meningioma along the superior aspect of the left sphenoid wing. There is diffuse smooth dural enhancement along the left frontotemporal convexity. No parenchymal signal abnormality is seen subjacent to these meningiomas. There is minimal associated mass effect. The ventricles are normal in size and configuration without evidence of hydrocephalus. Apart from a few punctate foci of T2 prolongation in the bilateral cerebral white matter no parenchymal abnormality is seen. The major arterial flow voids are preserved at the skull base. The orbital contents appear normal. NECK MRA: There is normal antegrade flow in the major neck vessels. There is no significant stenosis in the carotid or vertebral arteries. HEAD MRA: No intracranial aneurysm is seen. The intracranial internal carotid arteries appear normal. The anterior cerebral artery, anterior communicating artery, and middle cerebral arteries appear normal. The intradural vertebral arteries and basilar artery appear normal. The posterior cerebral arteries appear normal. Both posterior communicating arteries are seen. IMPRESSION: BRAIN MRI - Meningioma along the left superior frontal convexity measuring 2.8 x 1.6 cm. A second smaller meningioma measuring 1.7 x 0.7 cm is seen along the superior aspect of the left sphenoid wing. No subjacent parenchymal signal abnormality or significant mass effect related to these small masses. The dura along the left frontotemporal convexity is smoothly thickened. - No acute intracranial abnormality. Specifically there is no evidence of posterior circulation infarct. No significant small vessel ischemic changes are seen. NECK MRA - No hemodynamically significant stenosis in the major arteries of the neck. HEAD MRA - No large vessel occlusion or significant stenosis within the proximal intracranial circulation. - No intracranial aneurysm.
--- NOTE | 2017-08-20 12:13 | MRI REPORT ---
EXAMINATION: MR CERVICAL SPINE WITHOUT AND WITH CONTRAST CLINICAL INFORMATION: Rule out acute pathology. COMPARISON: Cervical spine CT February 28, 2009. TECHNIQUE: MRI of the cervical spine without and with contrast was obtained using routine sequences. 8 mL Gadavist was intravenously administered. FINDINGS: The cervical vertebral bodies maintain normal heights and alignment. There is diffuse disc height loss involving all of the cervical levels roof with relative sparing of the C2-C3 disc. Multilevel edematous endplate and bone marrow changes are seen from C3 to T1. Prominent anterior endplate osteophytes are also noted. The cervical cord signal is normal. No abnormal or unexpected enhancement is seen. The visualized portions of the intracranial contents appear normal. The extraspinal soft tissues appear normal. SPINAL LEVELS: C2-C3: No posterior disc abnormality. No spinal canal or neural foraminal stenosis. C3-C4: Broad-based disc osteophyte complex and ligamentum flavum infolding resulting in mild spinal canal stenosis. Moderate to severe left and mild right neural foraminal stenosis related to uncovertebral and facet arthropathy. C4-C5: Broad-based disc osteophyte complex and ligamentum flavum infolding resulting in mild spinal canal stenosis. Moderate to severe bilateral neural foraminal stenosis related to uncovertebral and facet arthropathy. C5-C6: Broad-based disc osteophyte complex and ligamentum flavum infolding resulting in mild spinal canal stenosis. Left more than right uncovertebral and facet arthropathy results in moderate to severe left and mild right neural foraminal stenosis. C6-C7: Broad-based disc osteophyte complex and ligamentum flavum infolding resulting in mild spinal canal stenosis. Mild left neural foraminal stenosis related to uncovertebral and facet arthropathy. The right neural foramen is patent. C7-T1: Broad-based disc osteophyte complex and ligamentum flavum infolding results in mild spinal canal stenosis. Left more than right uncovertebral and left facet arthropathy results in mild left neural foraminal stenosis. The right neural foramen is patent. IMPRESSION: - Multilevel mild spinal canal stenosis related to disc osteophyte complex and ligamentum flavum infolding. No cord signal abnormality or high-grade stenosis. - Multilevel neural foraminal stenosis which is more advanced on the right at C3-C4, bilaterally at C4-C5, and on the right at C5-C6.
[2017-08-20 14:03] VITALS: BP 130/68
--- NOTE | 2017-08-20 14:41 | PN- Neurology ---
Subjective Subjective: DIZZY Review of Systems: states some improvement no vomitting not yet out of bed vertigo on movement no SOB Objective Vital Signs and I&Os Vital Signs Date Time Temp Pulse Resp B/P B/P Pulse O2 O2 Flow FiO2 Mean Ox Delivery Rate 08/20 1403 97.9 71 18 130/68 94 Room Air 08/20 1130 78 140/64 08/20 0800 Room Air 08/20 0647 97.8 69 18 150/68 94 Room Air 08/19 2057 98.4 64 18 134/68 94 Room Air 08/19 1453 98.2 68 18 130/80 92 Room Air Intake & Output 08/20 1600 08/20 0800 08/20 0000 08/19 1600 08/19 0800 08/19 0000 Intake Total 530 220 375 510 100 150 Output Total 800 300 350 850 Balance -270 -80 25 -340 100 150 Intake, IV 30 30 Intake, Oral 500 220 375 480 100 150 Number 0 0 Bowel Movements Output, Urine 800 300 350 850 Patient 168 lb 168 lb Weight Weight Bed scale Measurement Method alert no dysarthria no focal weakness no upper extremity incoordination EOM full pupils reactive hallpike geovanna: dizzy to either side; no nystagmus Current Medications: Current Medications Sig/Ragini Start time Last Medication Dose Route Stop Time Status Admin Acetaminophen 650 MG Q6P PRN 08/18 1745 AC PO Aspirin Buffered 81 MG DAILY 08/19 1306 AC 08/20 PO 1137 Atorvastatin Calcium 40 MG 1700 08/19 1700 AC 08/19 PO 1625 Diazepam 2 MG ONCE PRN 08/20 0715 DC 08/20 PO 08/20 1400 0929 Hydroxyurea 500 MG Q48 08/20 0900 DC PO Hydroxyurea 1,000 MG Q48 08/20 0900 AC 08/20 PO 1137 Hydroxyurea 500 MG Q48 08/19 1330 AC 08/19 PO 1332 Morphine Sulfate 4 MG Q4P PRN 08/18 1745 AC IV Oxycodone/ 1 TAB Q6P PRN 08/18 1745 AC Acetaminophen PO Patient Medication 1 ED ONE ONE 08/20 1230 DC 08/20 Teaching ED 08/20 1231 1405 Patient Medication 1 ED ONE ONE 08/19 1630 DC 08/20 Teaching ED 08/19 1631 0712 Results Last 24 Hours of Lab Results: Lyme 0.12 Recent Imaging Studies: IMPRESSION: BRAIN MRI - Meningioma along the left superior frontal convexity measuring 2.8 x 1.6 cm. A second smaller meningioma measuring 1.7 x 0.7 cm is seen along the superior aspect of the left sphenoid wing. No subjacent parenchymal signal abnormality or significant mass effect related to these small masses. The dura along the left frontotemporal convexity is smoothly thickened. - No acute intracranial abnormality. Specifically there is no evidence of posterior circulation infarct. No significant small vessel ischemic changes are seen. NECK MRA - No hemodynamically significant stenosis in the major arteries of the neck. HEAD MRA - No large vessel occlusion or significant stenosis within the proximal intracranial circulation. - No intracranial aneurysm. Assessment/Plan Assessment: Vertigo, positional no nystagmus noted withhvertigo MRI: no evidence for CVA or posterior fossa lesions Possible labrynthine induced possible non organic Plan: PT ENT eval/VNG if available diazepam 1mg Q8HR trial
[2017-08-20 21:29] VITALS: BP 124/72
[2017-08-21 06:31] VITALS: BP 128/64
--- NOTE | 2017-08-21 07:57 | PN- Housestaff ---
See Addendum Roby RICHTER,[facility] 08/21/17 0757: Subjective Follow-up For: Vertigo Tele-Events Since Last Visit: Normal sinus rhythm junctional beats Subjective: Seen and examined. Resting comfortably. Currently not moving at all. Feels unsteady on the feet. Does not feel comfortable walking to the bathroom or bedside commode uses bedpan. Patient has been evaluated by neurology and has undergone MRI/MRA of brain and neck. Test results were discussed in detail with patient yesterday. Review of Systems Constitutional: Reports: see HPI. Objective Last 24 Hrs of Vital Signs/I&O Vital Signs Date Time Temp Pulse Resp B/P B/P Pulse O2 O2 Flow FiO2 Mean Ox Delivery Rate 08/21 0631 98.3 67 20 128/64 94 Room Air 08/20 2129 98.3 68 124/72 94 Room Air 08/20 1403 97.9 71 18 130/68 94 Room Air 08/20 1130 78 140/64 Intake & Output 08/21 1600 08/21 0800 08/21 0000 Intake Total 100 400 Output Total 375 350 Balance -275 50 Intake, Oral 100 400 Output, Urine 375 350 Patient 167 lb Weight Weight Bed scale Measurement Method Physical Exam General Appearance: Alert, Oriented X3 Cardiovascular: Normal S1, Normal S2 Lungs: Clear to Auscultation Abdomen: Soft Neurological: Normal Speech, no nystagmus Current Medications: Current Medications Sig/Ragini Start time Last Medication Dose Route Stop Time Status Admin Acetaminophen 650 MG Q6P PRN 08/18 1745 AC PO Aspirin Buffered 81 MG DAILY 08/19 1306 AC 08/20 PO 1137 Atorvastatin Calcium 40 MG 1700 08/19 1700 AC 08/20 PO 1823 Diazepam 1 MG Q8P PRN 08/20 1515 AC 08/20 PO 2134 Diazepam 2 MG ONCE PRN 08/20 0715 DC 08/20 PO 08/20 1400 0929 Hydroxyurea 500 MG Q48 08/20 0900 DC PO Hydroxyurea 1,000 MG Q48 08/20 0900 AC 08/20 PO 1137 Hydroxyurea 500 MG Q48 08/19 1330 AC 08/19 PO 1332 Morphine Sulfate 4 MG Q4P PRN 08/18 1745 AC IV Oxycodone/ 1 TAB Q6P PRN 08/18 1745 AC Acetaminophen PO Patient Medication 1 ED ONE ONE 08/20 1230 DC 08/20 Teaching ED 08/20 1231 1405 Assessment/Plan Assessment: This is a 71-year-old female with past medical history significant for thrombocytosis, multinodular goiter, arthritis,who comes in for CC of sudden onset dizziness. On physical exam she was found to have 5 beat nystagmus with no other obvious neurologic deficit but with some postural instability. Differential diagnosis for vertigo in this patient, given sudden onset, includes BPPV, vestibular neuritis, and vertebrobasilar TIA. She is currently being monitored on telemetry floor for treatment and evaluation of following conditions #Vertigo Appears to be positional vertigo. Patient has been evaluated by neurology. CT head negative for intracranial pathology. -Awaiting MRI/MRA of head and neck done yesterday positive for cervical stenosis and meningioma -Meclizine has been discontinued because it was not improving patient's symptoms -Continue Valium [id number] -Continue working with PT -ENT referral # Palpitations EKG shows sinus arrhythmia and multiple PACs. She seem to have evidence of possible block on admission. 3 sets of troponin negative, magnesium and TSH within normal limits. Overnight telemetry monitoring revealed normal sinus rhythm with sinus bradycardia. AV block? -Lyme titer within normal limits -Repeat EKG today in setting of junctional beats observed overnight #History of thrombocytosis Continue hydroxyurea #MCV 101.6. Secondary to hydroxyurea. B12 and folate within normal limits Problem List: 1. 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 Vertigo is worse today, occurs with change in position. No further numbness. MRI/A head and neck showed no posterior or vascular lesion. Frontal meningioma x2 noted, unlikely to be etiology of vertigo. 1. Vertigo 2. Unable to ambulate Plan - Discontinue telemetry - May discontinue ASA and statin - Obtain ENT consult - Continue PRN Valium - Follow neurology and PT recommendations - Continue home medications - DVT PPx
--- NOTE | 2017-08-21 08:25 | Discharge Summary ---
Visit Information Visit Dates Admission Date: 08/20/17 Discharge Date: 08/22/17 Hospital Course Course Attending Physician: Jesus Castrejon MD Primary Care Physician: Wliliam RICHTER,Racheal Goodman Hospital Course: The patient is 71-year-old female with past medical history of essential thrombocytosis on hydroxyurea and multinodular goiter. She presented to [facility] ED for evaluation of acute onset dizziness, with gait unsteadiness and sensation of room spinning. On physical examination she was found to have 5 beat nystagmus with no other obvious neurologic deficit but with some postural instability. She was admitted to telemetry for for evaluation of intractable vertigo. Our differentials included BPPV, vestibular neuritis, vestibular basilar TIA. She was evaluated by occupational/physical therapy services. Jennifer-Hallpike maneuver was positive for brief rotatory nystagmus which was treated with Alex's and maneuver. However patient was complaining of intermittent right leg weakness and left-sided neck numbness, concerning for central causes of her vertigo. She was started on aspirin and statin and meclizine along with diazepam 1 mg q8 for symptomatic relief. We proceeded with MRI and MRA of both head and neck and neurology was consulted. MRI/MRA were essentially negative with only positive finding being two small frontal meningioma without any mass-effect and cervical mild spinal canal stenosis, along with multilevel neural foraminal stenosis. Neurology cleared the patient for ENT evaluation. Aspirin and statin were discontinued after negative MRI results for CVA/posterior fossa lesions. I talked to Dr. Vashti Flaherty ENT, who wanted the patient to be evaluated for any tinnitus, ear clogging/fullness sensation, hearing loss. And if present to be started on antiviral therapy acyclovir. Dr. Dunne bended towards diagnosis of acute vestibular neuronitis or acute labyrinthitis. Patient denied all of these symptoms and was continued on meclizine and diazepam. Patient was to be evaluated by ENT on the day of the discharge. However patient felt improvement in symptoms and worked with physical therapy who cleared her for home with home PT services. She did not want to wait very long for ENT evaluation which can also be done as an outpatient. The patient reported multiple tick bites and was complaining of palpitations on presentation. There was mild AV block on her EKG Lyme titer was negative. She remained in normal sinus rhythm with few PVCs during her stay on telemetry. She will require monitoring with her primary care physician and possible cardiology referral if there is worsening in symptoms. The patient was full code during her stay. She is being discharged with follow- up instructions are with primary care physician and ENT. Allergies: Coded Allergies: Iodine and Iodide Containing Produc (Intermediate, RASH 08/18/17) Uncoded Allergies: NYSENTAL (Intermediate, RASH 08/18/17) INGREDIENT: NO KNOWN - NO KNOWN DRUG ALLERGY (02/28/09) Pertinent Lab Results: EXAM TYPE: MRI - MRA-HEAD; MRA-NECK W/O>W PAUL; MRI-HEAD W & W/O PAUL EXAMINATION: MR BRAIN WITHOUT AND WITH CONTRAST MRA HEAD WITHOUT CONTRAST MRA NECK WITHOUT AND WITH CONTRAST CLINICAL INFORMATION: Intractable vertigo. Rule out CVA particularly and posterior circulation. COMPARISON: Head CT August 18, 2017. TECHNIQUE: Multiplanar, multisequence MRI of the brain was obtained before and after the intravenous administration of 8 mL Gadavist. MRA of the neck was performed without and with contrast. MRA of head was performed without contrast utilizing [id number] technique. FINDINGS: BRAIN MRI: There is no acute infarct, hemorrhage, or parenchymal mass. There is a 2.8 x 1.6 meningioma along the left superior frontal convexity and an additional 1.7 x 0.7 cm meningioma along the superior aspect of the left sphenoid wing. There is diffuse smooth dural enhancement along the left frontotemporal convexity. No parenchymal signal abnormality is seen subjacent to these meningiomas. There is minimal associated mass effect. The ventricles are normal in size and configuration without evidence of hydrocephalus. Apart from a few punctate foci of T2 prolongation in the bilateral cerebral white matter no parenchymal abnormality is seen. The major arterial flow voids are preserved at the skull base. The orbital contents appear normal. NECK MRA: There is normal antegrade flow in the major neck vessels. There is no significant stenosis in the carotid or vertebral arteries. HEAD MRA: No intracranial aneurysm is seen. The intracranial internal carotid arteries appear normal. The anterior cerebral artery, anterior communicating artery, and middle cerebral arteries appear normal. The intradural vertebral arteries and basilar artery appear normal. The posterior cerebral arteries appear normal. Both posterior communicating arteries are seen. IMPRESSION: BRAIN MRI - Meningioma along the left superior frontal convexity measuring 2.8 x 1.6 cm. A second smaller meningioma measuring 1.7 x 0.7 cm is seen along the superior aspect of the left sphenoid wing. No subjacent parenchymal signal abnormality or significant mass effect related to these small masses. The dura along the left frontotemporal convexity is smoothly thickened. - No acute intracranial abnormality. Specifically there is no evidence of posterior circulation infarct. No significant small vessel ischemic changes are seen. NECK MRA - No hemodynamically significant stenosis in the major arteries of the neck. HEAD MRA - No large vessel occlusion or significant stenosis within the proximal intracranial circulation. - No intracranial aneurysm. EXAM TYPE: MRI - MRI-CERVICAL W & W/O PAUL EXAMINATION: MR CERVICAL SPINE WITHOUT AND WITH CONTRAST CLINICAL INFORMATION: Rule out acute pathology. COMPARISON: Cervical spine CT February 28, 2009. TECHNIQUE: MRI of the cervical spine without and with contrast was obtained using routine sequences. 8 mL Gadavist was intravenously administered. FINDINGS: The cervical vertebral bodies maintain normal heights and alignment. There is diffuse disc height loss involving all of the cervical levels roof with relative sparing of the C2-C3 disc. Multilevel edematous endplate and bone marrow changes are seen from C3 to T1. Prominent anterior endplate osteophytes are also noted. The cervical cord signal is normal. No abnormal or unexpected enhancement is seen. The visualized portions of the intracranial contents appear normal. The extraspinal soft tissues appear normal. SPINAL LEVELS: C2-C3: No posterior disc abnormality. No spinal canal or neural foraminal stenosis. C3-C4: Broad-based disc osteophyte complex and ligamentum flavum infolding resulting in mild spinal canal stenosis. Moderate to severe left and mild right neural foraminal stenosis related to uncovertebral and facet arthropathy. C4-C5: Broad-based disc osteophyte complex and ligamentum flavum infolding resulting in mild spinal canal stenosis. Moderate to severe bilateral neural foraminal stenosis related to uncovertebral and facet arthropathy. C5-C6: Broad-based disc osteophyte complex and ligamentum flavum infolding resulting in mild spinal canal stenosis. Left more than right uncovertebral and facet arthropathy results in moderate to severe left and mild right neural foraminal stenosis. C6-C7: Broad-based disc osteophyte complex and ligamentum flavum infolding resulting in mild spinal canal stenosis. Mild left neural foraminal stenosis related to uncovertebral and facet arthropathy. The right neural foramen is patent. C7-T1: Broad-based disc osteophyte complex and ligamentum flavum infolding results in mild spinal canal stenosis. Left more than right uncovertebral and left facet arthropathy results in mild left neural foraminal stenosis. The right neural foramen is patent. IMPRESSION: - Multilevel mild spinal canal stenosis related to disc osteophyte complex and ligamentum flavum infolding. No cord signal abnormality or high-grade stenosis. - Multilevel neural foraminal stenosis which is more advanced on the right at C3-C4, bilaterally at C4-C5, and on the right at C5-C6. Disposition Summary Disposition Principal Diagnosis: Peripheral vertigo Additional Diagnosis: History of essential thrombosis Discharge Disposition: home health services Discharge Instructions General Discharge Information Code Status: Full Code Patient's Diet: As tolerated Patient's Activity: As tolerated Follow-Up Instructions/Appts: Follow up with ENT and primary care doctor Medications at Discharge Discharge Medications: Continue taking these medications: Hydroxyurea (Hydroxyurea) 500 MG CAPSULE 2 Capsule ORAL EVERY 48 HOURS (Every 2 days) Qty = 135 Comments: Last Taken: 08/22/17 Time: 9 AM Hydroxyurea (Hydroxyurea) 500 MG CAPSULE 1 Capsule ORAL EVERY 48 HOURS (Every 2 days) Comments: Last Taken: 08/21/17 Time: 9 AM Cholecalciferol (Vitamin D3) (Vitamin D) 1,000 UNIT TABLET 1 Tablet ORAL DAILY Comments: DID NOT RECIEVE IN HOSPITAL Vitamin E (Vitamin E) 400 UNIT CAPSULE 1 Capsule ORAL DAILY Comments: DID NOT RECIEVE Aspirin (Ecotrin*) 81 MG TABLET.DR 1 Tablet ORAL DAILY Comments: Last Taken: 08/21/17 Time: 9 AM Start taking the following new medications: Meclizine HCl (Meclizine HCl) 25 MG TABLET 1 Tablet ORAL THREE TIMES A DAY NEEDED Qty = 10 No Refills Comments: DID NOT RECIEVE IN HOSPITAL Copies To: William RICHTER,Racheal Goodman; Corrina RICHTER,Chan Vital MD Review Statement Documenting Attending: Jesus Castrejon MD
[2017-08-21 14:18] VITALS: BP 144/80
[2017-08-21 21:49] VITALS: BP 132/78
[2017-08-22 06:27] VITALS: BP 138/70
--- NOTE | 2017-08-22 07:31 | PN- Housestaff ---
See Addendum Subjective Follow-up For: Vertigo Tele-Events Since Last Visit: Normal sinus rhythm heart rate ranging in the 80s Subjective: Seen and examined. Resting comfortably. Vertigo is improving. Patient can turn sideways without getting dizzy and also come and come forward. She is going to be working with physical therapy today stable to be discharged medically. Review of Systems Constitutional: Reports: see HPI. Objective Last 24 Hrs of Vital Signs/I&O Vital Signs Date Time Temp Pulse Resp B/P B/P Pulse O2 O2 Flow FiO2 Mean Ox Delivery Rate 08/22 0627 98.2 75 18 138/70 95 Room Air 08/21 2149 98.4 76 18 132/78 93 Room Air 08/21 1418 98.2 80 20 144/80 97 Room Air Intake & Output 08/22 1600 08/22 0800 08/22 0000 Intake Total 450 Output Total 700 Balance -250 Intake, Oral 450 Output, Urine 700 Patient 166 lb Weight Weight Bed scale Measurement Method Physical Exam General Appearance: Alert, Oriented X3, Cooperative Cardiovascular: Normal S1, Normal S2 Lungs: Clear to Auscultation Abdomen: Soft Neurological: Normal Speech, no nystagmus Current Medications: Current Medications Sig/Ragini Start time Last Medication Dose Route Stop Time Status Admin Acetaminophen 650 MG Q6P PRN 08/18 1745 AC PO Aspirin Buffered 81 MG DAILY 08/19 1306 DC 08/21 PO 0846 Atorvastatin Calcium 40 MG 1700 08/19 1700 DC 08/20 PO 1823 Diazepam 1 MG Q8P PRN 08/20 1515 AC 08/21 PO 1758 Hydroxyurea 1,000 MG Q48 08/20 0900 AC 08/20 PO 1137 Hydroxyurea 500 MG Q48 08/19 1330 AC 08/21 PO 0847 Meclizine HCl 25 MG TID PRN 08/21 1945 AC PO Morphine Sulfate 4 MG Q4P PRN 08/18 1745 AC IV Oxycodone/ 1 TAB Q6P PRN 08/18 1745 AC Acetaminophen PO Patient Medication 1 ED ONE ONE 08/21 1645 DC [facility] ED 08/21 1646 Assessment/Plan Assessment: This is a 71-year-old female with past medical history significant for thrombocytosis, multinodular goiter, arthritis,who comes in for CC of sudden onset dizziness. On physical exam she was found to have 5 beat nystagmus with no other obvious neurologic deficit but with some postural instability. Differential diagnosis for vertigo in this patient, given sudden onset, includes BPPV, vestibular neuritis, and vertebrobasilar TIA. She is currently being monitored on telemetry floor for treatment and evaluation of following conditions #Vertigo Appears to be positional vertigo. Patient has been evaluated by neurology. CT head negative for intracranial pathology. MRI/MRA of head and neck done positive for cervical stenosis and meningioma. I talked to ENT Dr. Ball yesterday she will come and evaluate the patient today. She recommended to start patient on meclizine 25 mg TID and continue Valium around the clock. She recommended if patient is having any ear symptoms like tinnitus deafness or ear fullness/clogging she should be started on valacyclovir patient denied all of the symptoms. -Continue meclizine and Valium -ENT evaluation pending # Palpitations No episodes overnight remained in sinus rhythm. Lyme titer is negative she can follow-up with her primary care doctor after discharge and see a kier hand outpatient #History of thrombocytosis Continue hydroxyurea #MCV 101.6. Secondary to hydroxyurea. B12 and folate within normal limits Problem List: 1. Vertigo 2. Gait instability Pain Ratin Pain Location: na Pain Goal: Pain 4 or less Pain Plan: prn Tomorrow's Labs & Rationales: none none
--- NOTE | 2017-08-22 11:25 | Patient Discharge Instructions ---
Discharge Instructions General Discharge Information You were seen/treated for: Vertigo You had these procedures: MRI/MRA of head and neck with positive finding of 2 small size meningiomas and mild cervical stenosis (AGE RELATED) Special Instructions: -Please follow-up with your primary care doctor after discharge -Please follow-up with ENT doctor after discharge within 1 week a referral has been provided Please use walker if you feel unsteady on your feet. Return to ED or call her primary care doctor if you are feeling unbearable dizziness, extremely unsteady on her feet and having chest pains or palpitation. Diet Continue normal diet: Yes Activity Activity Self Limited: Yes Acute Coronary Syndrome Inclusion Criteria At DC or during hospital stay patient has or had the following: ACS DIAGNOSIS No Discharge Core Measures Meds if any: Prescribed or Continued at Discharge Meds if any: NOT Prescribed or Continued at Discharge Congestive Heart Failure Inclusion Criteria At DC or during hospital stay patient has or had the following: CHF DIAGNOSIS No Discharge Core Measures Meds if any: Prescribed or Continued at Discharge Meds if any: NOT Prescribed or Continued at Discharge Cerebrovascular accident Inclusion Criteria At DC or during hospital stay patient has or had the following: CVA/TIA Diagnosis No Discharge Core Measures Meds if any: Prescribed or Continued at Discharge Meds if any: NOT Prescribed or Continued at Discharge Venous thromboembolism Inclusion Criteria VTE Diagnosis No VTE Type NONE VTE Confirmed by (Test) NONE Discharge Core Measures - Per Current guidelines, there needs to be overlap - treatment for the first 5 days of Warfarin therapy. - If discharged on Warfarin prior to 5 days of - overlap therapy, the patient will need to be - assessed for post discharge needs including - *Post discharge parental anticoagulation - *Warfarin and/or parental anticoagulation education - *Follow up date to check INR post discharge At least 5 days overlap therapy as Inpatient No Meds if any: Prescribed or Continued at Discharge Note: Overlap Therapy is Warfarin and Anticoagulant Meds if any: NOT Prescribed or Continued at Discharge
[2017-08-22] MEDS ORDERED: MECLIZINE HCL25 MG PO (11:26)
== END 2017-08-22 13:43 | disposition home health service (06) | DRG 149 ==
LOC: ERH 09:32 → ERHI 15:42 → 1NO 15:42 → CANRESERV 16:35 → ENRESERV 16:35 → ENTRNSPT 17:36 → EDTRNSPTSTS 17:49 → EDTRNSPT 18:05 → EDBEDREQ 18:49 → ENRESERV 19:41 → EDTRNSPT 20:15 → 1NO 20:56 → CMPTRNSPT 21:05 → 1NO 08-19 07:31 → ENPENDDIS 08-22 11:36 → ENTRNSPT 08-22 13:22 → EDTRNSPTSTS 08-22 13:36 → 1NO 08-22 13:43 → CMPTRNSPT 08-22 13:47
PROVIDERS: Physician Assistant; Student in an Organized Health Care Education/Training Program
DX: R42 Dizziness and giddiness (principal); E04.2 Nontoxic multinodular goiter; D47.3 Essential (hemorrhagic) thrombocythemia; M19.90 Unspecified osteoarthritis, unspecified site; R00.2 Palpitations; I49.1 Atrial premature depolarization; R26.89 Other abnormalities of gait and mobility; D32.0 Benign neoplasm of cerebral meninges; H55.00 Unspecified nystagmus; Z88.8 Allergy status to other drugs, medicaments and biological substances; Z91.048 Other nonmedicinal substance allergy status
CPT/HCPCS: 1NSP; 70552; 70555; 70564; 72142; 86317; 86618; 87798; 36592; 70553; 72156; 82436; 93005; 93010; 96374; 97112-GO; 97112-GP; 97116-GO; 97116-GP; 97162-GP; 97530-GO; A9579; G8981-GP; G8982-GP; J3101